=== PATIENT | male | born 1955 | race Caucasian/White ===

== ENCOUNTER 2017-01-22 21:45 | Emergency (ER) | payer BC, OTHER ==
[2017-01-22 22:31] LABS: #Basophils 0.1 thou/uL (0.0-0.2); #Eosinphils 0.3 thou/uL (0.0-0.7); #Lymphocytes 2.3 thou/uL (1.20-3.40); #Monocytes 1.2 thou/uL (0.11-0.59); #Neutrophils 7.9 thou/uL (1.40-6.50); %Basophils 0.7 % (0.0-1.0); %Eosinophils 2.6 % (0.0-10.0); %Lymphocytes 19.6 % (21.0-51.0); %Monocytes 9.9 % (0.0-10.0); Hematocrit 45.3 % (42.0-52.0); Mean Platelet Volume 6.9 fL (7.4-10.4); Red Blood Cell (RBC) Count 4.88 mill/uL (4.70-6.10); White Blood Cell (WBC) Count 11.8 thou/uL (4.8-10.8)
--- NOTE | 2017-01-22 22:38 | RAD ---
AP VIEW OF THE CHEST: 01/22/17 INDICATION: Left sided neck pain radiating to the left side. COMPARISON: Prior exam dated 11/03/06. FINDINGS: There is bibasilar atelectasis. Otherwise, the examination is not appreciably changed from the ronnell rison. IMPRESSION: Bibasilar atelectasis. POS: [facility]
[2017-01-22 22:56] LABS: ALT (SGPT) 14 U/L (8-55); AST (SGOT) 15 U/L (5-34); Alkaline Phosphatase 67 U/L (40-150); Anion Gap 13 mmol/L (10-20); BUN (Urea Nitrogen) 15 mg/dL (8.4-25.7); Bilirubin, Total 0.6 mg/dL (0.2-1.2); CK (CPK) 47 U/L (30-200); Calc. Creatinine Clearance 0 mL/min (70-130); Calcium 8.9 mg/dL (7.8-10.44); Carbon Dioxide 28 mmol/L (22-29); Chloride 104 mmol/L (98-107); Estimated GFR-MDRD 78; Globulin 2.9 g/dL (2.4-3.5); Lipase 16 U/L (8-78); Protein, Total 6.7 g/dL (6.0-8.3)
[2017-01-22 23:00] LABS: Troponin I Less than 0.010 ng/mL (< 0.028)
== END 2017-01-22 23:35 | disposition home or self-care (01) ==
LOC: ERS 21:45
DX: R07.81 Pleurodynia (principal); E78.5 Hyperlipidemia, unspecified; I10 Essential (primary) hypertension; Z79.82 Long term (current) use of aspirin; Z79.899 Other long term (current) drug therapy
CPT/HCPCS: 71010; 80053; 82553; 83690; 84484; 85025; 85379; 93005